=== PATIENT | female | born 1955 | race Caucasian/White ===

== ENCOUNTER 2017-03-30 19:42 | Emergency (ER) | payer BC ==
[2017-03-30 20:02] VITALS: BP 155/70
--- NOTE | 2017-03-30 20:48 | RADIOLOGY REPORT (SQ) ---
EXAM DESCRIPTION: ANKLE RIGHT COMPLETE COMPLETED DATE/TIME: 03/30/2017 8:33 pm REASON FOR STUDY: fall COMPARISON: None. NUMBER OF VIEWS: Three views right ankle. LIMITATIONS: None. FINDINGS: There is no acute or significant bone, joint or soft tissue abnormality. OTHER: No other significant finding. IMPRESSION: NORMAL STUDY. TECHNICAL DOCUMENTATION: JOB ID: [id number]
--- NOTE | 2017-03-30 20:50 | RADIOLOGY REPORT (SQ) ---
EXAM DESCRIPTION: HIP LEFT AP/LATERAL COMPLETED DATE/TIME: 03/30/2017 8:33 pm REASON FOR STUDY: fall COMPARISON: None. NUMBER OF VIEWS: Two views, AP pelvis and frog lateral left hip. LIMITATIONS: None. FINDINGS: No pelvic or hip fracture. Mild right hip joint space narrowing relative to left. Left h ip joint space maintained. OTHER: No other significant finding. IMPRESSION: Normal radiographs left hip. TECHNICAL DOCUMENTATION: JOB ID: [id number]
--- NOTE | 2017-03-30 20:57 | ER Document Report ---
HPI - HPI Patient complains to provider of: fall today Pain Level: 5 Context: Patient is a 61-year-old female who presents emergency department complaining of a fall. Patient states that she was walking on uneven ground when she rolled her right ankle slipped and landed on her left hip. She admits that her pain is most significant on the lateral aspect of her right ankle. She admits to multiple fractures in her right ankle. Otherwise she states she is able to bear weight but with pain. - NEURO Neurology: DENIES: Weakness, Vision blurred, Dizzinesss / Vertigo - MUSCULOSKELETAL Musculoskeletal: REPORTS: Extremity pain Past Medical History - Social History Smoking Status: Unknown if Ever Smoked Family History: Reviewed & Not Pertinent Patient has suicidal ideation: No Patient has homicidal ideation: No Renal/ Medical History: Denies: Hx Peritoneal Dialysis Vertical Provider Document - CONSTITUTIONAL Agree With Documented VS: Yes Notes: PHYSICAL EXAM GENERAL: Alert, interacts well. EXTREMITIES: Moves all 4 extremities spontaneously. Tenderness palpation of the lateral aspect of the right ankle without any evidence of deformity. There is evidence of mild swelling just distal to the fibular head. No edema, dorsalis pedis pulses 2/4 bilaterally. No cyanosis. NEUROLOGICAL: Alert and oriented x4. Normal speech. PSYCH: Normal affect, normal mood. SKIN: Warm, dry, normal turgor. No rashes or lesions noted. - INFECTION CONTROL TRAVEL OUTSIDE OF THE [place] IN LAST 30 DAYS: No - RESPIRATORY O2 Sat by Pulse Oximetry: 95 Course - Re-evaluation Re-evalutation: 03/30/17 20:55 Patient is a 61-year-old female is hemodynamically stable, no acute distress. No evidence of a septic joint, dislocation, or fracture on exam and imaging. Presentation is consistent with an ankle sprain of the right. Otherwise contusion of the left hip. Vitals wnl. At this time, I do not see an indication for labs or further imaging. Will discharge with conservative measures, return precautions, and follow-up recommendations. - Vital Signs Vital signs: Temp Pulse Resp BP Pulse Ox 98.0 F 55 L 20 155/70 H 95 03/30/17 19:59 03/30/17 19:59 03/30/17 19:59 03/30/17 19:59 03/30/17 19:59 - Diagnostic Test Radiology reviewed: Image reviewed, Reports reviewed Procedures - Immobilization Right Ankle Pre-Proc Neuro Vasc Exam: Normal Immobilizer type: Ankle stirrup Performed by: PCT Post-Proc Neuro Vasc Exam: Unchanged from pre-exam Alignment checked and good: Yes Discharge - Discharge Clinical Impression: Fall Qualifiers: Encounter type: initial encounter Qualified Code(s): W19.XXXA - Unspecified fall, initial encounter Condition: Good Disposition: HOME, SELF-CARE Instructions: Acetaminophen, Ankle Stirrup Splint ([facility]), Contusion ([facility]), Use of [facility] Ibuprofen ([facility]), Ice & Elevation ([facility]), Sprained Ankle ([facility]) Forms: Elevated Blood Pressure Referrals: BLESSING MARSHALL MD [ACTIVE STAFF] - Follow up in 1 week
== END 2017-03-30 21:08 | disposition home or self-care (01) ==
LOC: ER 19:42
DX: S99.911A Unspecified injury of right ankle, initial encounter (principal); W01.0XXA Fall on same level from slipping, tripping and stumbling without subsequent striking against object, initial encounter
CPT/HCPCS: 99283; 73610; 73502; L1902